=== PATIENT | male | born 1945 | race Caucasian/White ===

== ENCOUNTER 2022-09-03 19:38 | Observation (INO) | payer OTHER, SELFPAY ==
--- NOTE | ~2022-09-03 | XR_ITS ---
EXAMINATION: XR CHEST CLINICAL INFORMATION: Fall, pain. COMPARISON: None TECHNIQUE: Frontal view of the chest was obtained. FINDINGS: Low lung volumes with bibasilar platelike opacities and equivocal trace left-sided pleural effusion. No pneumothorax. No displaced osseous fractures. Cardiomediastinal silhouette is within normal limits for technique. XR/XR chest 1V IMPRESSION: Low lung volumes with bibasilar platelike opacities, favored to represent subsegmental atelectasis. Equivocal trace amount of left-sided pleural fluid.
--- NOTE | ~2022-09-03 | CT_ITS ---
EXAMINATION: CT CHEST, ABDOMEN AND PELVIS WITH CONTRAST. CLINICAL INFORMATION: Fall, pain. COMPARISON: Chest radiograph from earlier today. TECHNIQUE: Multidetector volumetric imaging was performed from the thoracic inlet through the pubic symphysis following administration of 100 mL Omnipaque 300 intravenous contrast. Sagittal and coronal reformatted images were obtained on the technologist's workstation. This CT examination was performed using dose optimization techniques as appropriate, variously including the following: *Automated exposure control *Adjustment of mA and/or kV according to patient size (this includes techniques or standardized protocols for targeted exams where dose is matched to indication/reason for exam; i.e. extremities or head) *Use of iterative reconstruction technique DLP: 256 and 543 mGy-cm FINDINGS: CHEST: Lung: Background of emphysematous changes and diffuse bronchial wall thickening. There are scattered sub-3 mm pulmonary nodules, for instance a labor service representative 3 mm right upper lobe nodule (7:197). Linear-like opacities in the lower lobes are favored to represent subsegmental atelectases or scarring. Mediastinum: Cardiomegaly. No pericardial effusion. Coronary artery calcifications and atherosclerotic disease of the thoracic aorta which is of normal diameter. Normal appearance of the thyroid gland. No pathologically enlarged mediastinal or hilar lymph nodes. Pericardium/Pleura: No pleural effusion. No pleural mass or thickening. No pneumothorax. Chest Wall/Axilla: Mild symmetric gynecomastia. No pathologically enlarged lymph nodes. ABDOMEN/PELVIS: Peritoneal Space: No free air or free fluid. Liver, Gallbladder, Biliary Tree: The liver is normal in size, shape and attenuation. No focal liver lesions are noted. The gallbladder is not visualized, presumably surgically removed. The common bile duct is dilated measuring up to 1.4 cm in diameter. No radiopaque choledocholithiasis is noted. There is also mild intrahepatic biliary ductal dilatation. There is a nonspecific platelike calcification abutting the right posterior surface of the liver (16:65). Pancreas: There is dilatation of the proximal main pancreatic duct at the level of the head and body measuring up to 5 mm. There appears to be a separate insertion of the dorsal pancreatic duct with respect to the CBD, raising the possibility of pancreatic divisum anatomy. No peripancreatic fat stranding or free fluid. Spleen: Unremarkable. Adrenal Glands: Unremarkable. Kidneys and Ureters: The kidneys are normal in size, shape, and attenuation. No hydronephrosis, hydroureter, or calculi seen. No perinephric stranding. Bladder: Unremarkable. Gastrointestinal Tract: The stomach and the small bowel are nondilated. The appendix is not definitely identified, however there are no regional inflammatory changes to suspect acute appendicitis. Sigmoid diverticulosis. No pericolic inflammatory changes. Moderate colonic and rectal stool content. Abdominal Wall: Supraumbilical hernia neck measures 1.7 cm (13:41) containing fat and engorged omental vasculature with mild fat stranding. Lymphovascular Structures: No pathologically enlarged lymph nodes. Abdominal aorta is of normal caliber. Aortoiliac atherosclerosis. Pelvic Viscera: Mild prostatomegaly. Osseus Structures: Minimally displaced left posterior ninth, 10th and 11th rib fractures. There are a few other bilateral nondisplaced rib deformities, possibly fractures as well, for instance in the left anterior seventh rib and right anterior second rib. No acute compression deformities or subluxation of the lumbar spine. Severe multilevel lumbar spondylosis. CT/CT abdomen pelvis w IV con IMPRESSION: 1. Minimally displaced left posterior ninth, 10th and 11th rib fractures with a few other nondisplaced bilateral rib fractures. Correlate with point tenderness. No other acute traumatic sequela. 2. Nonspecific biliary ductal dilatation and nonspecific main pancreatic ductal dilatation with possible pancreatic divisum anatomy. Recommend correlation with ERCP/MRCP. 3. Supraumbilical abdominal wall hernia with mild fat stranding, correlate with physical examination for signs of strangulation or infection. 4. Platelike calcification abutting the right hepatic lobe is nonspecific but could represent a dropped gallstone in the appropriate clinical context. 5. Diverticulosis but no findings to suspect acute diverticulitis. 6. Emphysematous changes with diffuse bronchial wall thickening suggesting small airways disease. 7. Scattered sub-3 mm pulmonary nodules. Assuming patient has no history of malignancy, recommend follow-up per Fleischner Society recommendations. According to the UPDATED 2017 Fleischner Society recommendations, the advised followup imaging for solid nodules < 6 mm is: LOW RISK PATIENT: No routine follow up. HIGH RISK PATIENT: Optional CT at 12 months.
[2022-09-03 19:56] VITALS: BP 143/81; PULSE 84; RESP 16; TEMP 36.4; O2SAT 94; BMI 27.8
[2022-09-04] VITALS (8 sets, daily range): BP systolic 120–139; BP diastolic 74–83; PULSE 73–84; RESP 14–20; TEMP 36.7–37.2; O2SAT 92–95
--- NOTE | 2022-09-04 00:37 | ED_ITS ---
HPI - Fall General Chief Complaint: Fall Stated Complaint: fell 09/03 back and rib pain Time Seen by Provider: 09/04/22 00:35 History of Present Illness HPI Narrative: Patient apparently had mechanical fall slipped on the wet leaves spun landed on his back on the left side complaining of pain in left rib area no loss of consciousness no head injury no neck pain patient is not on any blood thinner no vomiting pain in the left chest area increases on deep inspiration Related Data Allergies Allergy/AdvReac Type Severity Reaction Status Date / Time No Known Allergies Allergy Verified 09/03/22 19:55 Review of Systems Review of Systems: Yes all other systems are reviewed and are negative [facility] Past Medical History Medical History (Updated 09/04/22 @ 03:43 by Ashely Gerardo MD) Anxiety Essential hypertension GERD (gastroesophageal reflux disease) Mixed hyperlipidemia Social History Social History Alcohol intake: former Smoked in Last 30 Days: No Use of substances other than those prescribed or required for medical reasons: No Advance Directives: No Physical Exam Vital Signs: Vital Signs: Last Vital Signs Temp 98.1 F 09/04/22 00:43 Pulse 80 09/04/22 03:27 Resp 17 09/04/22 03:27 BP 125/76 09/04/22 03:27 Pulse Ox 94 09/04/22 03:27 O2 Del Method 09/04/22 03:27 BMI result Body Mass Index 27.8 Appearance: Alert. Oriented X3. No acute distress. Eyes: PERRLA, No Nystagmus HEENT: Pharynx normal. Oral Mucosa moist atraumatic normocephalic Neck: Normal inspection. Neck supple. No midline tenderness CVS: Normal heart rate and rhythm. Pulses normal. Respiratory: No respiratory distress. Equal air entry bilateral, no wheezing/rales/rhonchi local tenderness left lower ribs posteriorly no ecchymosis no subcutaneous crepitation Abdomen: Soft and nontender. Bowel sounds are present, no mass palpable, no CVA tenderness Skin: Skin warm and dry. Normal skin color. Normal skin turgor. Extremities: No lower extremity edema. No calf tenderness pelvis stable, good range of movement of both hips Neuro: Oriented X 3. No motor deficit. No sensory deficit.No cerebellar signs , cranial nerves II-XII intact Medications Administered Generic Name Dose Route Start Last Admin Trade Name Sondra PRN Reason Stop Dose Admin Acetaminophen 650 mg 09/04/22 04:00 09/04/22 04:00 Acetaminophen 325 Mg Tablet PO 650 mg Q6H MAI Administration Enoxaparin Sodium 40 mg 09/04/22 03:45 09/04/22 04:00 Enoxaparin Sodium 40 Mg/0.4 Ml Syringe SUBCUT 40 mg Q24H MAI Administration Discontinued Medications Generic Name Dose Route Start Last Admin Trade Name Sondra PRN Reason Stop Dose Admin Iohexol 85 ml 09/04/22 02:01 09/04/22 02:01 Iohexol 350 Mg/Ml 100 Ml Infus..Btl IV 09/04/22 02:02 85 ml ONCE ONE Administration Morphine Sulfate 4 mg 09/04/22 00:51 09/04/22 00:59 Morphine Sulfate 4 Mg/Ml Cartridge IVPUSH 09/04/22 00:52 4 mg ONCE ONE Administration Protocol Morphine Sulfate 4 mg 09/04/22 03:18 09/04/22 03:27 Morphine Sulfate 4 Mg/Ml Cartridge IVPUSH 09/04/22 03:19 4 mg ONCE ONE Administration Protocol Ondansetron HCl 4 mg 09/04/22 00:51 09/04/22 00:59 Ondansetron Hcl 4 Mg/2 Ml Vial IVPUSH 09/04/22 00:52 4 mg ONCE ONE Administration MDM - Fall MDM Narrative Medical decision making narrative: Patient with minimal displaced left lower rib fracture without any internal injuries patient did have a history of right-sided multiple rib fracture in the past . Will admit patient for observation and pain control Differential Diagnosis Differential diagnosis: Likely fracture Lab Data Attestation: I reviewed the patient's lab results. Result diagrams: 09/04/22 01:12 09/04/22 01:12 Labs: Lab Results 09/04/22 09/04/22 09/04/22 Range/Units 01:12 01:12 01:57 WBC 11.0 H (4.8-10.8) X10*3/uL RBC 5.31 (4.60-5.80) X10*6/uL Hgb 17.0 (14.0-18.0) g/dl Hct 50.1 (42.0-52.0) % MCV 94.4 (80.0-98.0) fL MCH 32.0 (27.0-33.0) pg MCHC 33.9 (31.0-36.0) g/dl RDW 15.0 (11.0-16.0) % Plt Count 215 (160-400) X10*3/uL MPV 9.2 L (9.4-12.4) fL Immature Gran % (Auto) 0.5 H (0.0-0.4) % Neut % (Auto) 80.8 H (45-73) % Lymph % (Auto) 8.0 L (20-40) % [place] % (Auto) 9.7 (2-11) % Eos % (Auto) 0.9 (0-4) % Baso % (Auto) 0.1 (0-2) % Lymph # (Auto) 0.9 L (1.2-4.9) X10*3/uL [place] # (Auto) 1.1 (0.1-1.2) X10*3/uL Eos # (Auto) 0.1 (0.0-0.4) X10*3/uL Baso # (Auto) 0.0 (0.0-0.2) X10*3/uL Abs Immat Gran (auto) 0.06 H (0.00-0.03) X10*3/uL Absolute Neuts (auto) 8.9 H (2.0-8.3) x10*3/uL Absolute Nucleated RBC 0.000 (0.0-0.012) X10*3/uL Nucleated RBC % (auto) 0.0 (0.0-0.2) /100WBC PT 14.2 H (10.0-13.1) SEC INR 1.2 H (0.9-1.1) Sodium 140 (135-145) mmol/L Potassium 4.1 (3.3-5.1) mmol/L Chloride 103 (96-108) mmol/L Carbon Dioxide 21 L (22-29) mmol/L Anion Gap 20 (12-20) BUN 16 (9-16) mg/dL Creatinine 0.98 (0.5-1.4) mg/dL Estim Creat Clear Calc 59.7 Estimated GFR > 60 Random Glucose 109 (60-115) mg/dL Calcium 9.9 (8.4-10.2) mg/dL Imaging Data CT scan - chest: Attestation: I personally reviewed and interpreted this imaging study as follows: Radiologist's impression: CT/CT abdomen pelvis w IV con IMPRESSION: 1.? Minimally displaced left posterior ninth, 10th and 11th rib fractures with a few other nondisplaced bilateral rib fractures. Correlate with point tenderness. No other acute traumatic sequela. Discharge Plan Discharge Clinical Impression: Multiple fractures of ribs of left side Patient Disposition: Admitted As Inpatient
--- NOTE | 2022-09-04 00:43 | PC.NURSE ---
Patient arrives now to room 9 via wheelchair and stands/pivots to stretcher with excruciating pain to left anterior and posterior ribs. At 6PM he was walking around outside and he fell off his pool deck approximately 6 feet onto his left side. He denies head strike or LOC. He denies blood thinners. He writhes in pain with movement. He is alert, oriented x4, and denies pain elsewhere. He denies numbness, tingling. He denies neck pain. +CSM to all extremities.
[2022-09-04] MEDS: ondansetron HCL 4 MG/2 ML VIAL IVPUSH (00:59)
[2022-09-04] MEDS: Morphine Sulfate 4 MG/ML CARTRIDGE IVPUSH ×2 (00:59→03:27)
[2022-09-04 01:20] LABS: MANUAL DIFF FLAG NO
[2022-09-04 01:21] LABS: Basophils Percent Auto 0.1 % (0-2); Eosinophils Absolute Auto 0.1 X10*3/uL (0.0-0.4); Eosinophils Percent Auto 0.9 % (0-4); Hematocrit 50.1 % (42.0-52.0); Imm Gran Abs Auto 0.06 X10*3/uL (0.00-0.03); Imm Gran Pct Auto 0.5 % (0.0-0.4); Lymphocytes Absolute Auto 0.9 X10*3/uL (1.2-4.9); Mean Corpuscular HGB Conc 33.9 g/dl (31.0-36.0); Mean Corpuscular Volume 94.4 fL (80.0-98.0); Mean Platelet Volume 9.2 fL (9.4-12.4); Monocytes Absolute Auto 1.1 X10*3/uL (0.1-1.2); Monocytes Percent Auto 9.7 % (2-11); Neutrophils Absolute Auto 8.9 x10*3/uL (2.0-8.3); Neutrophils Percent Auto 80.8 % (45-73); Platelet Count 215 X10*3/uL (160-400); Red Blood Count 5.31 X10*6/uL (4.60-5.80)
[2022-09-04 01:35] LABS: Anion Gap 20 (12-20); Blood Urea Nitrogen 16 mg/dL (9-16); Calcium 9.9 mg/dL (8.4-10.2); Carbon Dioxide 21 mmol/L (22-29); Chloride 103 mmol/L (96-108); Creatinine Clr Calc Pharmacy 59.7; Estimated Glomerular Filt Rate > 60; Glucose Random 109 mg/dL (60-115); Potassium 4.1 mmol/L (3.3-5.1); Sodium 140 mmol/L (135-145)
[2022-09-04] MEDS: iohexoL 350 MG/ML 100 ML INFUS..BTL 85 ML IV (02:01)
[2022-09-04 02:17] LABS: INTERNATIONAL NORM RATIO 1.2 (0.9-1.1); Prothrombin Time 14.2 SEC (10.0-13.1)
--- NOTE | 2022-09-04 03:38 | P.HPHOSP_ITS ---
History of Present Illness Date of Service: 09/04/22 Chief Complaint: chest pain This is a 77-year-old male with pertinent history of essential hypertension, mood disorder, gastroesophageal reflux disease, mixed hyperlipidemia who presents to the ER after a fall. Patient states he walks 2 miles around his pooled every day for exercise. Last evening, patient was walking in the dark after sunset around his pool when he slipped on wet leaves and landed on the left side of his chest. Patient fell from ground level. Patient denies loss of consciousness. Did not hit his head. No rhythmic jerking movement of e xtremities, tongue bite, urinary or bowel incontinence. No dizziness or lightheadedness prior to the fall. Patient is not on any blood thinners. No neck pain. Since the fall, patient has been complaining of left-sided chest discomfort with tenderness. No dyspnea. No cough. No fever, chills, p alpitations, shortness of breath, nausea, vomiting, abdominal discomfort, changes in urinary or bowel habits In the emergency department, rib fractures noted on imaging Review of Systems Constitutional: Constitutional: Reports no additional constitutional complaints Cardiovascular: Cardiovascular: Reports no additional cardiovascular compl aints Respiratory: Respiratory: Reports no additional respiratory complaints Gastrointestinal: Gastrointestinal: Reports no additional gastrointestinal complaints Genitourinary: Genitourinary: Reports no additional male genitourinary comp laints Musculoskeletal: Comments: chest pain Neurologic: Reports system reviewed and no additional complaints, except as documented Psychiatric: Psychiatric: Reports no additional psychiatric complaints COUNT INCLUDES THE [facility] Medical History (Updated 09/04/22 @ 03:43 by Ashely Gerardo MD) Anxiety Essential hypertension GERD (gastroesophageal reflux disease) Mixed hyperlipidemia Functional capacity: independent ambulation Social History Alcohol intake: former Smoked in Last 30 Days: No Use of substances other than those prescribed or required for medical reasons: No Advance Directives: No Meds Allergies Allergy/AdvReac Type Severity Reaction Status Date / Time No Known Allergies Allergy Verified 09/03/22 19:55 Physical Exam Vital Signs and Narrative: Vital Signs: Last Vital Signs Temp 98.1 F 09/04/22 00:43 Pulse 80 09/04/22 03:27 Resp 17 09/04/22 03:27 BP 125/76 11/08/22 03:27 Pulse Ox 94 09/04/22 03:27 O2 Del Method 09/04/22 03:27 BMI result Body Mass Index 27.8 Elderly male lying in bed in no distress Left chest tenderness + Neck supple, no JVD Regular rate and rhythm, S1-S2 heard Regular breath sounds bilaterally, no wheezing or crackles appreciated Abdomen soft nontender, no guarding, no rigidity Patient is awake, alert and oriented to self, place, time and person ; no focal motor deficit Psych: Normal mood No pedal edema Results Labs CBC and Chem 7: 09/04/22 01:12 09/04/22 01:12 Labs: Laboratory Results - last 24 hr 09/04/22 09/04/22 09/04/22 01:12 01:12 01:57 MCV 94.4 MCH 32.0 MCHC 33.9 RDW 15.0 Plt Count 215 MPV 9.2 L Immature Gran % (Auto) 0.5 H Neut % (Auto) 80.8 H Lymph % (Auto) 8.0 L [place] % (Auto) 9.7 Eos % (Auto) 0.9 Baso % (Auto) 0.1 Lymph # (Auto) 0.9 L [place] # (Auto) 1.1 Eos # (Auto) 0.1 Baso # (Auto) 0.0 Abs Immat Gran (auto) 0.06 H Absolute Neuts (auto) 8.9 H Absolute Nucleated RBC 0.000 Nucleated RBC % (auto) 0.0 PT 14.2 H INR 1.2 H Anion Gap 20 Estim Creat Clear Calc 59.7 Estimated GFR > 60 Random Glucose 109 Calcium 9.9 Imaging Radiologist's Impressions: Impressions Chest X-Ray 09/04/22 00:47 IMPRESSION: Low lung volumes with bibasilar platelike opacities, favored to represent subsegmental atelectasis. Equivocal trace amount of left-sided pleural fluid. Abdomen/Pelvis CT 09/04/22 02:10 IMPRESSION: 1. Minimally displaced left posterior ninth, 10th and 11th rib fractures with a few other nondisplaced bilateral rib fractures. Correlate with point tenderness. No other acute traumatic sequela. 2. Nonspecific biliary ductal dilatation and nonspecific main pancreatic ductal dilatation with possible pancreatic divisum anatomy. Recommend correlation with ERCP/MRCP. 3. Supraumbilical abdominal wall hernia with mild fat stranding, correlate with physical examination for signs of strangulation or infection. 4. Platelike calcification abutting the right hepatic lobe is nonspecific but could represent a dropped gallstone in the appropriate clinical context. 5. Diverticulosis but no findings to suspect acute diverticulitis. 6. Emphysematous changes with diffuse bronchial wall thickening suggesting small airways disease. 7. Scattered sub-3 mm pulmonary nodules. Assuming patient has no history of malignancy, recommend follow-up per Fleischner Society recommendations. According to the UPDATED 2017 Fleischner Society recommendations, the advised followup imaging for solid nodules < 6 mm is: LOW RISK PATIENT: No routine follow up. HIGH RISK PATIENT: Optional CT at [address] 09/04/22 02:10 IMPRESSION: 1. Minimally displaced left posterior ninth, 10th and 11th rib fractures with a few other nondisplaced bilateral rib fractures. Correlate with point tenderness. No other acute traumatic sequela. 2. Nonspecific biliary ductal dilatation and nonspecific main pancreatic ductal dilatation with possible pancreatic divisum anatomy. Recommend correlation with ERCP/MRCP. 3. Supraumbilical abdominal wall hernia with mild fat stranding, correlate with physical examination for signs of strangulation or infection. 4. Platelike calcification abutting the right hepatic lobe is nonspecific but could represent a dropped gallstone in the appropriate clinical context. 5. Diverticulosis but no findings to suspect acute diverticulitis. 6. Emphysematous changes with diffuse bronchial wall thickening suggesting small airways disease. 7. Scattered sub-3 mm pulmonary nodules. Assuming patient has no history of malignancy, recommend follow-up per Fleischner Society recommendations. According to the UPDATED 2017 Fleischner Society recommendations, the advised followup imaging for solid nodules < 6 mm is: LOW RISK PATIENT: No routine follow up. HIGH RISK PATIENT: Optional CT at 12 months. Assessment and Plan (1) Multiple fractures of ribs of left side: Status: Acute (2) Essential hypertension: Status: Acute (3) Mixed hyperlipidemia: Status: Acute (4) Anxiety: Status: Acute (5) GERD (gastroesophageal reflux disease): Status: Acute Plan This is a 77-year-old male with pertinent history of essential hypertension, mood disorder, gastroesophageal reflux disease, mixed hyperlipidemia who presents to the ER after a fall. #. Left sided rib fractures -3 minimally displaced rib fractures on left side due to mechanical fall. No paradoxical motion of the chest wall with respiration. Will admit with pain control. Consulting Physical therapy to evaluate and treat. Initiating incentive spirometry to prevent atelectasis. No respiratory failure or pneum othorax/hemothorax at the time of admission. #. Essential hypertension -continue home antihypertensives #. Generalized anxiety disorder -Continue home bupropion #. Mixed hyperlipidemia -on statin #. GERD -on PPI Med rec pending DVT Prophylaxis: Lovenox 40mg daily Full code Cardiac diet Quality Stroke Does the patient have a stroke diagnosis?: No VTE Prior VTE?: No VTE Risk Level:: Medical - moderate - high VTE Device Contraindication: Treatment Not Indicated VTE Drug Contraindication: N/A - Med Ordered
[2022-09-04] MEDS: Enoxaparin Sodium 40 MG/0.4 ML SYRINGE SUBCUT (04:00)
[2022-09-04] MEDS: Acetaminophen 325 MG TABLET 650 MG PO ×3 (04:00→17:29)
[2022-09-04 06:07] LABS: MANUAL DIFF FLAG NO
[2022-09-04 06:21] LABS: Basophils Percent Auto 0.2 % (0-2); Eosinophils Absolute Auto 0.1 X10*3/uL (0.0-0.4); Eosinophils Percent Auto 1.4 % (0-4); Hematocrit 46.9 % (42.0-52.0); Hemoglobin 15.8 g/dl (14.0-18.0); Imm Gran Abs Auto 0.04 X10*3/uL (0.00-0.03); Imm Gran Pct Auto 0.4 % (0.0-0.4); Lymphocytes Absolute Auto 1.2 X10*3/uL (1.2-4.9); Lymphocytes Percent Auto 11.8 % (20-40); Mean Corpuscular HGB Conc 33.7 g/dl (31.0-36.0); Mean Corpuscular Hemoglobin 32.2 pg (27.0-33.0); Mean Corpuscular Volume 95.7 fL (80.0-98.0); Mean Platelet Volume 9.4 fL (9.4-12.4); Monocytes Absolute Auto 0.9 X10*3/uL (0.1-1.2); Monocytes Percent Auto 9.5 % (2-11); Neutrophils Absolute Auto 7.5 x10*3/uL (2.0-8.3); Neutrophils Percent Auto 76.7 % (45-73); Platelet Count 197 X10*3/uL (160-400); Red Cell Distribution Width 14.8 % (11.0-16.0); White Blood Count 9.8 X10*3/uL (4.8-10.8)
[2022-09-04 06:34] LABS: Anion Gap 17 (12-20); Blood Urea Nitrogen 15 mg/dL (9-16); Calcium 9.2 mg/dL (8.4-10.2); Carbon Dioxide 25 mmol/L (22-29); Chloride 100 mmol/L (96-108); Creatinine Clr Calc Pharmacy 58.6; Estimated Glomerular Filt Rate > 60; Glucose Random 92 mg/dL (60-115); Sodium 138 mmol/L (135-145)
--- NOTE | 2022-09-04 08:08 | PHA.MEDREC ---
Pharmacy Consult ? Medication Reconciliation Pharmacy has completed the medication reconciliation. Received list from [place]. [facility] Jane Hernandez, CassiD
--- NOTE | 2022-09-04 09:52 | PM.EVENT ---
Event Note Date of Service: 09/04/22 Event Note: Day Team Follow up S Seen and examined this AM. Still with left sided rib pain d/w him re: abnormalities found on CT imaging re: pancreatic divsium. States he had ex-lap as a child for hemangioma but denies any other known intrabdominal pathology. denies any trouble with diet Vitals last documented Gen - NAD when not moving, L sided chest wall TTP CVS - S1S2 Lungs - no distress, clear Abd - umbilical hernia which is easily reducible Neuro - non focal A/P 77 yo active male who presents after a mechanical fall resulting in multiple rib fractures admitted for PT eval + pain control transition to oral analgesics in preparation of d/c seen by PT this AM, await their recommendations anticipate d/c likely tomorrow - hopefully home in regards to his intrabdominal findings -- pt denies any GI symptoms. Will start with check LFTs -- if these are within normal limits can likely have outpatient f/u with MRCP.
[2022-09-04 10:37] LABS: Alanine Aminotransferase 57 U/L (0-40); Albumin Level 4.1 g/dL (3.5-5.0); Alkaline Phosphatase 61 U/L (39-117); Aspartate Amino Transferase 89 U/L (5-37); Bilirubin Direct 1.1 mg/dL (0.0-0.5); Bilirubin Total 2.4 mg/dL (0.0-1.0); Total Protein 6.1 g/dL (6.5-8.0)
[2022-09-04] MEDS: 0.9 % Sodium Chloride Flush 3 ML SYRINGE IVFLUSH (11:24)
[2022-09-04] MEDS: oxyCODONE HCl Immed Release 5 MG TABLET PO ×2 (12:40→19:40)
--- NOTE | 2022-09-04 14:22 | MHC.CM.ED ---
Attempted to meet with patient in regards to discharge planning. Patient experience staff is currently with the patient. Will attempt to meet again. Continue to monitor for d/c needs.
[2022-09-04] MEDS: lisinopriL 5 MG TABLET PO (15:40)
[2022-09-04] MEDS: buPROPion HCl XL 300 MG TAB.ER.24H PO (15:46)
[2022-09-04] MEDS: hydroCHLOROthiazide 25 MG TABLET PO (15:47)
--- NOTE | 2022-09-04 18:09 | MHC.CM.PN ---
ANNA 09/04. Met with pt assigned to OBS. A&Ox3. Independent. Drives. Mobility difficult secondary to injuries. Lives with son and his family. Fell while walking for daily exercise and FX 3 ribs. PT recommends STR. Pt agreeable to home PT initially.. Would like [facility]. Will eventually have PT services at [place]. Uses no DME. Has services at [facility]. Unsure who PCP is, as he has had 3 different PCP's in the past 9 months. 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 Call to Mellissa Erwin [place] Coordinator ([phone]) and message left with info and request for return call. Will need to call in the morning to discuss PT at [facility] and who PCP is. Kennya x3. HCP reviewed, completed and signed. Copies given. Uploaded into [employer] and [facility] [employer]. HCP/#1/son Charles Bui ([phone]) and HCP#2/daughter Kristy Renteria ([phone]). D/C plan: Home PT referral placed with [facility] as requested. Dr Pardeep heredia texted regarding PT assessment and patient request for initial home PT. Request for F2F. Family will transport home. CM will follow for d/c planning.
--- NOTE | 2022-09-04 18:59 | PC.NURSE ---
PT TRANSFERRED TO HOSPITAL BED. HAS BEEN IN NAD THROUGHOUT TODAY, PAIN DIFFICULT TO ADDRESS THOUGH GREAT IMPROVEMENT WITH [employer].
[2022-09-04 22:44] LABS: COVID-19 Test Negative (Negative)
[2022-09-05] VITALS (7 sets, daily range): BP systolic 105–119; BP diastolic 66–88; PULSE 73–87; RESP 16–18; TEMP 36.2–36.7; O2SAT 91–93
[2022-09-05] MEDS: oxyCODONE HCl Immed Release 5 MG TABLET PO ×2 (00:46→08:04)
[2022-09-05] MEDS: Enoxaparin Sodium 40 MG/0.4 ML SYRINGE SUBCUT (04:56)
[2022-09-05] MEDS: Acetaminophen 325 MG TABLET 650 MG PO ×4 (04:57→21:54)
[2022-09-05] MEDS: Omeprazole 20 MG CAPSULE.DR PO (05:55)
[2022-09-05] MEDS: Multivitamin TABLET 1 TAB PO (08:04)
[2022-09-05] MEDS: buPROPion HCl XL 300 MG TAB.ER.24H PO (08:04)
[2022-09-05] MEDS: hydroCHLOROthiazide 25 MG TABLET PO (08:04)
[2022-09-05] MEDS: lisinopriL 5 MG TABLET PO (08:04)
[2022-09-05] MEDS: Atorvastatin Calcium 10 MG TABLET PO (08:04)
[2022-09-05 09:47] LABS: MANUAL DIFF FLAG NO
[2022-09-05 10:00] LABS: Basophils Percent Auto 0.2 % (0-2); Eosinophils Absolute Auto 0.2 X10*3/uL (0.0-0.4); Eosinophils Percent Auto 2.2 % (0-4); Hematocrit 48.6 % (42.0-52.0); Hemoglobin 16.5 g/dl (14.0-18.0); Imm Gran Abs Auto 0.04 X10*3/uL (0.00-0.03); Imm Gran Pct Auto 0.4 % (0.0-0.4); Lymphocytes Absolute Auto 0.8 X10*3/uL (1.2-4.9); Lymphocytes Percent Auto 8.1 % (20-40); Mean Corpuscular Hemoglobin 32.7 pg (27.0-33.0); Mean Corpuscular Volume 96.2 fL (80.0-98.0); Mean Platelet Volume 9.6 fL (9.4-12.4); Monocytes Absolute Auto 0.9 X10*3/uL (0.1-1.2); Monocytes Percent Auto 9.7 % (2-11); Neutrophils Absolute Auto 7.7 x10*3/uL (2.0-8.3); Neutrophils Percent Auto 79.4 % (45-73); Platelet Count 206 X10*3/uL (160-400); Red Blood Count 5.05 X10*6/uL (4.60-5.80); White Blood Count 9.6 X10*3/uL (4.8-10.8)
[2022-09-05] MEDS: 0.9 % Sodium Chloride Flush 3 ML SYRINGE IVFLUSH ×3 (10:03→22:01)
[2022-09-05 10:08] LABS: Alanine Aminotransferase 50 U/L (0-40); Albumin Level 4.1 g/dL (3.5-5.0); Alkaline Phosphatase 64 U/L (39-117); Anion Gap 17 (12-20); Aspartate Amino Transferase 37 U/L (5-37); Bilirubin Total 1.6 mg/dL (0.0-1.0); Blood Urea Nitrogen 13 mg/dL (9-16); Calcium 9.1 mg/dL (8.4-10.2); Carbon Dioxide 27 mmol/L (22-29); Chloride 98 mmol/L (96-108); Creatinine Clr Calc Pharmacy 67.3; Estimated Glomerular Filt Rate > 60; Glucose Random 102 mg/dL (60-115); Potassium 3.9 mmol/L (3.3-5.1); Sodium 138 mmol/L (135-145); Total Protein 6.4 g/dL (6.5-8.0)
--- NOTE | 2022-09-05 11:12 | MHC.CM.PN ---
Received return telephone call from Mellissa at the [place]. Patient will need to communicate to home therapy physical that [facility] [place] He will also need transportation to and from their facility. Continue to monitor for d/c needs.
--- NOTE | 2022-09-05 12:45 | HO.PM.IMPN ---
Subjective Subjective Date of Service: 09/05/22 Interval History: Still in considerable pain with minimal movement. Pain also increased with deep inspiration Review of Systems Admits to chest pain worse with movement Denies shortness of breath Denies nausea vomiting diarrhea Denies fever chills Physical Exam Vital Signs: Vital Signs: Last Vital Signs Temp 97.4 F 09/05/22 11:51 Pulse 83 09/05/22 11:51 Resp 18 09/05/22 11:51 BP 119/88 09/05/22 11:51 Pulse Ox 91 L 09/05/22 11:51 O2 Del Method 09/05/22 11:51 BMI result Body Mass Index 27.8 Const: Other: No acute distress when lying quietly in bed Chest: Other: Pain with minimal palpation left lateral chest; no crepitus noted Resp: Other: Clear to auscultation bilaterally no rales rhonchi or wheezes. Somewhat diminished at bases Cardio: Other: No S4; positive S1-S2; no S3 murmurs rubs or gallops GI: Other: Soft nontender nondistended normoactive bowel sounds Extrem: Other: No edema bilaterally Objective Data Active Medications Acetaminophen (Acetaminophen 325 Mg Tablet) 650 mg PO Q6H [facility] Last Admin: 09/05/22 10:20 Dose: 650 mg Documented By: MADI Albuterol/Ipratropium (Albuterol/Iprat 2.5/0.5mg 3 Ml Ampul.Neb) 3 ml INHALE RQ4H PRN PRN Reason: wheezing Atorvastatin Calcium (Atorvastatin Calcium 10 Mg Tablet) 10 mg PO DAILY [facility] Last Admin: 09/05/22 08:04 Dose: 10 mg Documented By: BHARATH Bupropion HCl (Bupropion Hcl Xl 300 Mg Tab.Er.24h) 300 mg PO DAILY [facility] Last Admin: 09/05/22 08:04 Dose: 300 mg Documented By: BHARATH Enoxaparin Sodium (Enoxaparin Sodium 40 Mg/0.4 Ml Syringe) 40 mg SUBCUT Q24H [facility] Last Admin: 09/05/22 04:56 Dose: 40 mg Documented By: JESUS-LITCHRISTEN Hydrochlorothiazide (Hydrochlorothiazide 25 Mg Tablet) 25 mg PO DAILY [facility]; Protocol Last Admin: 09/05/22 08:04 Dose: 25 mg Documented By: BHARATH Lisinopril (Lisinopril 5 Mg Tablet) 5 mg PO DAILY [facility]; Protocol Last Admin: 09/05/22 08:04 Dose: 5 mg Documented By: BHARATH Melatonin (Melatonin 3 Mg Tablet) 6 mg PO BEDTIME PRN PRN Reason: Insomnia Multivitamins/Vitamin C (Multivitamin Tablet) 1 tab PO DAILY [facility] Last Admin: 09/05/22 08:04 Dose: 1 tab Documented By: BHARATH Omeprazole (Omeprazole 20 Mg Capsule.Dr) 20 mg PO DAILY@0630 [facility] Last Admin: 09/05/22 05:55 Dose: 20 mg Documented By: N-LITTA Ondansetron HCl (Ondansetron Hcl 4 Mg/2 Ml Vial) 4 mg IVPUSH Q8H PRN PRN Reason: Nausea and Vomiting Oxycodone HCl (Oxycodone Hcl Immed Release 5 Mg Tablet) 10 mg PO Q4H PRN PRN Reason: Pain, Moderate (Pain Scale 4-6 Pharmacy Consult (Consult Rx Perform Med Rec) 1 each MISCELLANE ONCE PRN PRN Reason: Consult order Sodium Chloride (0.9 % Sodium Chloride Flush 3 Ml Syringe) 3 ml IVFLUSH QSHIFT [facility] Last Admin: 09/05/22 10:03 Dose: 3 ml Documented By: MADI Labs CBC & Chem 7: 09/05/22 09:23 09/05/22 09:41 Labs: Laboratory Results - last 24 hr 09/04/22 09/04/22 09/05/22 06:08 22:23 09:23 MCV 96.2 MCH 32.7 MCHC 34.0 RDW 15.0 Plt Count 206 MPV 9.6 Immature Gran % (Auto) 0.4 Neut % (Auto) 79.4 H Lymph % (Auto) 8.1 L [place] % (Auto) 9.7 Eos % (Auto) 2.2 Baso % (Auto) 0.2 Lymph # (Auto) 0.8 L [place] # (Auto) 0.9 Eos # (Auto) 0.2 Baso # (Auto) 0.0 Abs Immat Gran (auto) 0.04 H Absolute Neuts (auto) 7.7 Absolute Nucleated RBC 0.000 Nucleated RBC % (auto) 0.0 Anion Gap Estim Creat Clear Calc Estimated GFR Random Glucose Calcium Total Bilirubin AST ALT Alkaline Phosphatase Total Protein Albumin COVID-19 ([facility]) Cancelled Negative COVID-19 Clin Com Cancelled See Note 09/05/22 09:41 MCV MCH MCHC RDW Plt Count MPV Immature Gran % (Auto) Neut % (Auto) Lymph % (Auto) [place] % (Auto) Eos % (Auto) Baso % (Auto) Lymph # (Auto) [place] # (Auto) Eos # (Auto) Baso # (Auto) Abs Immat Gran (auto) Absolute Neuts (auto) Absolute Nucleated RBC Nucleated RBC % (auto) Anion Gap 17 Estim Creat Clear Calc 67.3 Estimated GFR > 60 Random Glucose 102 Calcium 9.1 Total Bilirubin 1.6 H AST 37 ALT 50 H Alkaline Phosphatase 64 Total Protein 6.4 L Albumin 4.1 COVID-19 ([facility]) COVID-19 Clin Com Assessment and Plan (1) Multiple fractures of ribs of left side: Status: Acute (2) Essential hypertension: Status: Acute (3) GERD (gastroesophageal reflux disease): Status: Acute Plan This is a 77-year-old male with pertinent history of essential hypertension, mood disorder, gastroesophageal reflux disease, mixed hyperlipidemia who presents to the ER after a fall. 1. Left sided rib fractures -oxycodone increased to 10 mg q.4 hours -K-pad ordered as per physical therapy -adjust pain meds as indicated; PT recommending short-term rehab as patient is relatively immobile secondary to pain 2.Essential hypertension -acceptable control on current therapies -adjust as indicated 3.GERD -control on PPI Med rec pending DVT Prophylaxis: Lovenox 40mg daily Full code Will require ongoing hospitalization for adequate pain control until short-term bed available Quality Stroke Does the patient have a stroke diagnosis?: No VTE Prior VTE?: No VTE Risk Level:: Medical - moderate - high VTE Device Contraindication: Treatment Not Indicated VTE Drug Contraindication: N/A - Med Ordered
[2022-09-05] MEDS: oxyCODONE HCl Immed Release 5 MG TABLET 10 MG PO ×3 (12:57→22:04)
--- NOTE | 2022-09-05 16:14 | MHC.CM.PN ---
EMR REVIEWED, PHYSOCAL THERAPY RECOMMENDING STR, PT HAS NO PREFERNCE OF SNF AND HAS MEDICARE A/B, PT IS NOT [facility] CONNECT[facility] AND WILL D/C ON MEDICARE BENEFIT, ANTIC D/C 1-2 DAYS, MAGDALENE JACOBS, LEISA FOLLOWING.
[2022-09-06 04:00] VITALS: BP 116/70; PULSE 73; RESP 17; TEMP 36.2; O2SAT 92
[2022-09-06] MEDS: Acetaminophen 325 MG TABLET 650 MG PO ×2 (04:20→10:47)
[2022-09-06] MEDS: oxyCODONE HCl Immed Release 5 MG TABLET 10 MG PO ×3 (04:21→13:21)
[2022-09-06] MEDS: Enoxaparin Sodium 40 MG/0.4 ML SYRINGE SUBCUT (04:21)
[2022-09-06] MEDS: Omeprazole 20 MG CAPSULE.DR PO (05:35)
[2022-09-06 07:22] VITALS: BP 116/78; PULSE 78; RESP 18; TEMP 36.2; O2SAT 93
[2022-09-06] MEDS: buPROPion HCl XL 300 MG TAB.ER.24H PO (09:03)
[2022-09-06] MEDS: 0.9 % Sodium Chloride Flush 3 ML SYRINGE IVFLUSH (09:03)
[2022-09-06] MEDS: lisinopriL 5 MG TABLET PO (09:03)
[2022-09-06] MEDS: Atorvastatin Calcium 10 MG TABLET PO (09:03)
[2022-09-06] MEDS: hydroCHLOROthiazide 25 MG TABLET PO (09:03)
[2022-09-06] MEDS: Multivitamin TABLET 1 TAB PO (09:03)
--- NOTE | 2022-09-06 09:43 | MHC.CM.PN ---
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
[2022-09-06 10:49] VITALS: BP 116/78; PULSE 78; O2SAT 93
[2022-09-06 11:31] VITALS: BP 127/64; PULSE 92; RESP 18; TEMP 36.3; O2SAT 92
--- NOTE | 2022-09-06 12:06 | P.DS_ITS ---
DS: Providers Provider Date of Service: 09/06/22 Date of admission: 09/04/22 03:35 Date of discharge: 09/06/22 Primary care physician: Harriet Zimmerman NP DS: Diagnosis Discharge Diagnosis (1) Multiple fractures of ribs of left side: Status: Acute (2) Essential hypertension: Status: Acute (3) GERD (gastroesophageal reflux disease): Status: Acute DS: Summary Hospital Course Hospital Course: This is a 77-year-old male with pertinent history of essential hypertension, mood disorder, gastroesophageal reflux disease, mixed hyperlipidemia who presents to the ER after a fall.? Patient states he walks 2 miles around his pooled every day for exercise.? Last evening, patient was walking in the dark after sunset around his pool when he slipped on wet leaves and landed on the left side of his chest. Patient fell from ground level. Patient denies loss of consciousness.? Did not hit his head.? No rhythmic jerking movement of extremities, tongue bite, urinary or bowel incontinence.? No dizziness or lightheadedness prior to the fall.? Patient is not on any blood thinners.? No neck pain.? Since the fall, patient has been complaining of left-sided chest discomfort with tenderness.? No dyspnea.? No cough.? No fever, chills, palpitations, shortness of breath, nausea, vomiting, abdominal discomfort, changes in urinary or bowel habits. CT scan consistent with multiple fractures left side Hospital Course Admitted to the general medical floor and given IV pain management. Was seen at x2 by Physical therapy; able to participate minimally the 1st day with with great discomfort. Improved with increase of oxycodone. At this point in time physical therapy recommends short-term rehab and he will be discharged to [facility] to convalesce his ribs Time Spent with Patient Time attestation: Total time spent providing and/or coordinating discharge services: Discharge coordination time: Greater than 30 minutes Quality: Safe Use of Opioids Does Pt have an Active Cancer Diagnosis on the Problem List?: No Quality: Stroke Does the patient have a stroke diagnosis?: No Physical Exam Vital Signs: Vital Signs: Last Vital Signs Temp 97.3 F 09/06/22 11:31 Pulse 92 09/06/22 11:31 Resp 18 09/06/22 11:31 BP 127/64 09/06/22 11:31 Pulse Ox 92 09/06/22 11:31 O2 Del Method 09/06/22 11:31 BMI result Body Mass Index 27.8 Const: Other: No acute distress when lying quietly in bed Chest: Other: Pain with minimal palpation left lateral chest; no crepitus noted Resp: Other: Clear to auscultation bilaterally no rales rhonchi or wheezes. Somewhat diminished at bases Cardio: Other: No S4; positive S1-S2; no S3 murmurs rubs or gallops GI: Other: Soft nontender nondistended normoactive bowel sounds Extrem: Other: No edema bilaterally Discharge Plan Discharge Patient Disposition: Xfer SNF Discharge Diagnosis: Multiple fractured ribs left side Referrals: Harriet Zimmerman NP [Primary Care Provider] - 1 Week Discharge Medications: New oxycodone 5 mg Tablet 10 mg PO Q4H PRN (Reason: Pain, Moderate (Pain Scale 4-6) Qty: 60 0RF Rx Instructions: Partial Fill upon patient request. Continued multivitamin Tablet 1 tab PO DAILY simvastatin 40 mg tablet 20 mg PO DAILY omeprazole 20 mg capsule,delayed release(DR/EC) 1 cap PO DAILY lisinopril 5 mg tablet 1 tab PO DAILY hydrochlorothiazide 25 mg tablet 1 tab PO DAILY albuterol sulfate 90 mcg/actuation HFA aerosol inhaler 2 puff inhalation Q6H bupropion HCl 300 mg tablet extended release 24 hr 1 tab PO DAILY Asmanex Twisthaler 220 mcg/ actuation (120) aerosol powdr breath activated 1 puff inhalation BID Discharge Orders: Discharge Order (Routine); Ordered 09/06/22 Ordered By: Sher Berman Diet: Advance to usual diet Activity on Discharge: As tolerated Stand Alone Forms: Patient Portal Discharge page Care Plan Goals: Oxycodone for pain as ordered Health Concerns: Physical therapy for bed mobility and gait training Plan of Treatment: As per receiving facility Assessment: As per discharge summary
--- NOTE | 2022-09-06 12:10 | MHC.CM.PN ---
PT MEDICALLY CLEARED FOR STR AT [facility] [address] W/RADHA FOR TRANSPORT AT 2:30PM.
== END 2022-09-06 16:21 | disposition skilled nursing facility (03) ==
LOC: HO.ED 09-04 03:20 → HO.EDOVER 09-04 03:41 → HO.S3 09-05 03:39
PROVIDERS: Family Medicine; Internal Medicine; Admitting Provider Student in an Organized Health Care Education/Training Program; Emergency Provider Emergency Medicine; PCP Nurse Practitioner Gerontology; Visit Provider Hospitalist
DX: S22.42XA Multiple fractures of ribs, left side, initial encounter for closed fracture (principal); R07.89 Other chest pain; R26.89 Other abnormalities of gait and mobility; R10.9 Unspecified abdominal pain; K21.9 Gastro-esophageal reflux disease without esophagitis; F41.9 Anxiety disorder, unspecified; E78.2 Mixed hyperlipidemia; I10 Essential (primary) hypertension; W01.0XXA Fall on same level from slipping, tripping and stumbling without subsequent striking against object, initial encounter; Y93.9 Activity, unspecified; Y92.007 Garden or yard of unspecified non-institutional (private) residence as the place of occurrence of the external cause; Y99.9 Unspecified external cause status; Z20.822 Contact with and (suspected) exposure to COVID-19; Z79.899 Other long term (current) drug therapy
CPT/HCPCS: 36415; 71045; 71260; 74177; 80048; 80053; 80076; 85025; 85610; 87635; 97110; 97162; 97530; 99218; 99285; J1650; J2270; J2405; Q9967